=== PATIENT | female | born 1950 | race Two or more races ===

== ENCOUNTER 2019-03-15 13:06 | Outpatient (CLI) | payer OTHER | END 2019-03-15 13:23 | disposition home or self-care (01) | LOC: LAB 13:06 | DX: D12.4 Benign neoplasm of descending colon (principal); R19.4 Change in bowel habit; D12.2 Benign neoplasm of ascending colon ==

== ENCOUNTER 2019-03-21 09:16 | Day surgery (SDC) | payer OTHER | END 2019-03-21 13:55 | disposition home or self-care (01) | LOC: AMB-ENDOS 09:16 | DX: C18.6 Malignant neoplasm of descending colon (principal); D12.2 Benign neoplasm of ascending colon ==

== ENCOUNTER 2019-04-04 16:57 | Inpatient (IN) | payer OTHER ==
[~2019-04-04] VITALS: Ht 157.5 cm; Wt 79.8 kg
[2019-04-24] MEDS ORDERED: FORTAMET1000 MG PO (10:21)
[2019-04-24] MEDS ORDERED: COZAAR100 MG PO (10:22)
[2019-04-24] MEDS ORDERED: ASPIR 8181 MG PO (10:22)
[2019-04-24] MEDS ORDERED: LIPITOR20 MG PO (10:23)
[2019-04-24] MEDS ORDERED: MICROZIDE12.5 MG PO (10:23)
[2019-04-24] MEDS ORDERED: METOPROLOL ER-1 EAC1 PO (10:23)
[2019-04-24] MEDS ORDERED: JARDIANCE25 MG PO (11:26)
[2019-05-02] MEDS ORDERED: HYOSCYAMINE0.125 M1 SL (15:18)
[2019-05-02] MEDS ORDERED: OXYC1TAB9 PO (15:18)
[2019-05-02] MEDS ORDERED: INTESTINEX680 M1 PO (15:19)
== END 2019-05-02 16:17 | disposition home or self-care (01) | DRG 330 ==
LOC: O/R 04-27 05:27 → SURH 04-27 05:27 → SURG 04-27 07:00 → SURH 04-27 11:43
PROVIDERS: ADMIT Surgery
PROC: 4A12X4Z Monitoring of Cardiac Electrical Activity, External Approach (ICD-10-PCS; 2019-04-27)
PROC: 4A033R1 Measurement of Arterial Saturation, Peripheral, Percutaneous Approach (ICD-10-PCS; 2019-04-27)
PROC: 0DTG4ZZ Resection of Left Large Intestine, Percutaneous Endoscopic Approach (ICD-10-PCS; principal; 2019-04-27 07:00)
PROC: BW21Y0Z Computerized Tomography (CT Scan) of Abdomen and Pelvis using Other Contrast, Unenhanced and Enhanced (ICD-10-PCS; 2019-05-01)
DX: C18.6 Malignant neoplasm of descending colon (principal); K91.31 Postprocedural partial intestinal obstruction; I11.9 Hypertensive heart disease without heart failure; E11.22 Type 2 diabetes mellitus with diabetic chronic kidney disease; I12.9 Hypertensive chronic kidney disease with stage 1 through stage 4 chronic kidney disease, or unspecified chronic kidney disease; N18.2 Chronic kidney disease, stage 2 (mild); E66.09 Other obesity due to excess calories; E78.00 Pure hypercholesterolemia, unspecified; G47.33 Obstructive sleep apnea (adult) (pediatric); K44.9 Diaphragmatic hernia without obstruction or gangrene; Z79.4 Long term (current) use of insulin

== ENCOUNTER 2020-06-04 10:21 | Day surgery (SDC) | payer OTHER ==
[~2020-06-04 10:21] MED LIST: ASPIR 8181 MG PO; COZAAR100 MG PO; FORTAMET1000 MG PO; HYOSCYAMINE0.125 M1 SL; INTESTINEX680 M1 PO; JARDIANCE25 MG PO; LIPITOR20 MG PO; METOPROLOL ER-1 EAC1 PO; MICROZIDE12.5 MG PO; OXYC1TAB9 PO
== END 2020-06-04 14:35 | disposition home or self-care (01) ==
LOC: AMB-ENDOS 10:21
PROVIDERS: ATTEND Surgery
DX: D12.3 Benign neoplasm of transverse colon (principal); K64.8 Other hemorrhoids; Z20.828 Contact with and (suspected) exposure to other viral communicable diseases

== ENCOUNTER 2022-11-02 10:09 | Inpatient (IN) | payer OTHER ==
[~2022-11-02] VITALS: Ht 157.5 cm; Wt 77.1 kg
[2022-11-09] MEDS ORDERED: CENTRUM SILVER1 EAC2 (13:08)
[2022-11-09] MEDS ORDERED: METOPROLOL SUCC25 MG (13:09)
[2022-11-09] MEDS ORDERED: GABAPENTIN100 M2 (13:10)
[2022-11-12] MEDS ORDERED: TRAM1TAB98 PO (16:43)
[2022-11-12] MEDS ORDERED: PEPCID AC20 MG PO (16:44)
[2022-11-12] MEDS ORDERED: INTESTINEX680 M1 PO (16:44)
== END 2022-11-12 17:21 | disposition home or self-care (01) | DRG 331 ==
LOC: SURG 11-09 07:00 → SURH 11-09 11:59 → O/R 11-09 11:59 → SURH 11-09 17:49
PROVIDERS: ADMIT Surgery; ATTEND Surgery
PROC: 0DBL4ZZ Excision of Transverse Colon, Percutaneous Endoscopic Approach (ICD-10-PCS; 2022-11-09)
PROC: 07BC4ZZ Excision of Pelvis Lymphatic, Percutaneous Endoscopic Approach (ICD-10-PCS; 2022-11-09)
PROC: 3E0F7SF Introduction of Other Gas into Respiratory Tract, Via Natural or Artificial Opening (ICD-10-PCS; 2022-11-09)
PROC: 4A12X4Z Monitoring of Cardiac Electrical Activity, External Approach (ICD-10-PCS; 2022-11-09)
PROC: 0DTF4ZZ Resection of Right Large Intestine, Percutaneous Endoscopic Approach (ICD-10-PCS; principal; 2022-11-09 10:45)
DX: D12.2 Benign neoplasm of ascending colon (principal); R59.0 Localized enlarged lymph nodes; R19.4 Change in bowel habit; I11.9 Hypertensive heart disease without heart failure; E11.9 Type 2 diabetes mellitus without complications; G47.33 Obstructive sleep apnea (adult) (pediatric); Z79.4 Long term (current) use of insulin